=== PATIENT | female | born 1975 | race Hispanic/Latino ===

== ENCOUNTER 2021-12-03 21:28 | Inpatient (IN) | payer OTHER, SELFPAY ==
[2021-12-03 22:07] LABS: #Basophils 0.1 thou/uL (0.0-0.2); #Eosinphils 0.1 thou/uL (0.0-0.7); #Monocytes 0.8 thou/uL (0.11-0.59); #Neutrophils 8.8 thou/uL (1.40-6.50); %Basophils 0.5 % (0.0-1.0); %Eosinophils 1.2 % (0.0-10.0); %Neutrophils 74.3 % (42.0-75.0); Hemoglobin 8.4 g/dL (12.0-16.0); Mean Corpuscular HGB CONC 30.4 g/dL (32.0-36.0); Mean Corpuscular Hemoglobin 22.6 pg (27.0-31.0); Mean Corpuscular Volume 74.4 fL (78.0-98.0); Mean Platelet Volume 9.5 fL (7.4-10.4); Platelet Count 260 thou/uL (130-400); RBC Distribution Width 16.7 % (11.5-14.5); Red Blood Cell (RBC) Count 3.71 mill/uL (4.20-5.40); White Blood Cell (WBC) Count 11.8 thou/uL (4.8-10.8)
[2021-12-03 22:16] LABS: INR-International Normal Ratio 1.1; PTT 25.4 sec (22.9-36.1); Prothrombin Time 14.3 sec (12.0-14.7)
[2021-12-03 22:20] LABS: BHCG - Serum Negative (NEGATIVE); Pregs Control Background? CLEAR/WHITE (CLR/WHITE); Pregs Control Bar Appear? YES (CONTROL BAR)
[2021-12-03 22:27] LABS: ALT (SGPT) 23 U/L (8-55); AST (SGOT) 18 U/L (5-34); Albumin 3.1 g/dL (3.5-5.0); Alkaline Phosphatase 78 U/L (40-110); Anion Gap 10 mmol/L (10-20); BUN (Urea Nitrogen) 14 mg/dL (7.0-18.7); Bilirubin, Total 0.2 mg/dL (0.2-1.2); Calc. Creatinine Clearance 0 mL/min (70-130); Calcium 8.3 mg/dL (7.8-10.44); Carbon Dioxide 21 mmol/L (22-29); Chloride 114 mmol/L (98-107); Estimated GFR 93; Globulin 2.6 g/dL (2.4-3.5); Glucose 159 mg/dL (70-105); Protein, Total 5.7 g/dL (6.0-8.3); Sodium 141 mmol/L (136-145)
[2021-12-03] MEDS ORDERED: Pantoprazole 40 MG VIAL ONE (22:47)
[2021-12-04 02:41] LABS: SARS-CoV-2 NAA Rapid Test Not Detected (NotDetected)
[2021-12-04] MEDS ORDERED: Acetaminophen 325 MG TAB PO PRN (03:31)
[2021-12-04] MEDS ORDERED: Ondansetron PF 4 MG/2 ML Vial IVP PRN (03:31)
[2021-12-04] MEDS ORDERED: Sodium Chloride 0.9% 1,000 ML IV SCH ×2 (03:45→09:15)
[2021-12-04] MEDS ORDERED: Dextrose 50% Abboject 50 ML SYRINGE SLOW IVP PRN (04:01)
[2021-12-04] MEDS ORDERED: HumaLOG 300 UNITS/3 ML VIAL SC PRN ×2 (04:01)
[2021-12-04] MEDS ORDERED: Dextrose 5% in Water 1,000 ML IV PRN (04:01)
[2021-12-04 04:33] LABS: #Eosinphils 0.1 thou/uL (0.0-0.7); #Lymphocytes 1.7 thou/uL (1.20-3.40); #Monocytes 0.5 thou/uL (0.11-0.59); #Neutrophils 4.8 thou/uL (1.40-6.50); %Basophils 0.4 % (0.0-1.0); %Eosinophils 1.5 % (0.0-10.0); %Lymphocytes 24.1 % (21.0-51.0); %Monocytes 7.1 % (0.0-10.0); %Neutrophils 66.8 % (42.0-75.0); Hemoglobin 7.1 g/dL (12.0-16.0); Mean Corpuscular HGB CONC 31.5 g/dL (32.0-36.0); Mean Corpuscular Hemoglobin 23.8 pg (27.0-31.0); Mean Corpuscular Volume 75.5 fL (78.0-98.0); Mean Platelet Volume 10.3 fL (7.4-10.4); Platelet Count 208 thou/uL (130-400); RBC Distribution Width 16.6 % (11.5-14.5); White Blood Cell (WBC) Count 7.2 thou/uL (4.8-10.8)
[2021-12-04] MEDS: Sodium Chloride 0.9% 1,000 ML IV SCH ×2 (04:55→09:08)
[2021-12-04 04:57] LABS: Iron 16 ug/dL (50-170); Iron Binding Capacity, Total 271 mcg/dL (265-497)
[2021-12-04 04:58] LABS: Anion Gap 8 mmol/L (10-20); BUN (Urea Nitrogen) 12 mg/dL (7.0-18.7); Calc. Creatinine Clearance 0 mL/min (70-130); Calcium 7.8 mg/dL (7.8-10.44); Carbon Dioxide 21 mmol/L (22-29); Chloride 114 mmol/L (98-107); Estimated GFR 110; Glucose 134 mg/dL (70-105); Iron 15 ug/dL (50-170); Iron Binding Capacity, Total 278 mcg/dL (265-497); Potassium 3.9 mmol/L (3.5-5.1); Sodium 139 mmol/L (136-145)
[2021-12-04 05:24] VITALS: BMI 31.5
[2021-12-04] MEDS ORDERED: Iopamidol 370 76% 100 ML VIAL ONE (08:42)
[2021-12-04] MEDS: predniSONE 5 MG TAB PO SCH (09:00)
[2021-12-04] MEDS: Pantoprazole 40 MG VIAL IVP SCH (09:01)
[2021-12-04] MEDS ORDERED: GoLYTELY 4,000 ml Bottle PO SCH (18:00)
[2021-12-05 05:53] LABS: Hemoglobin 7.4 g/dL (12.0-16.0); Mean Corpuscular HGB CONC 31.7 g/dL (32.0-36.0); Mean Corpuscular Hemoglobin 23.2 pg (27.0-31.0); Mean Platelet Volume 9.8 fL (7.4-10.4); Platelet Count 216 thou/uL (130-400); RBC Distribution Width 16.5 % (11.5-14.5)
[2021-12-05 06:08] LABS: Anion Gap 11 mmol/L (10-20); BUN (Urea Nitrogen) 4 mg/dL (7.0-18.7); Calc. Creatinine Clearance 124 mL/min (70-130); Calcium 8.8 mg/dL (7.8-10.44); Carbon Dioxide 24 mmol/L (22-29); Chloride 110 mmol/L (98-107); Estimated GFR 104; Glucose 102 mg/dL (70-105); Potassium 3.8 mmol/L (3.5-5.1); Sodium 141 mmol/L (136-145)
[2021-12-05] MEDS: Pantoprazole 40 MG VIAL IVP SCH (08:20)
[2021-12-05] MEDS: predniSONE 5 MG TAB PO SCH (08:51)
[2021-12-05] MEDS ORDERED: PROPOFOL 200 MG/20 ML VIAL ONE (10:07)
[2021-12-06 06:16] LABS: Hemoglobin 8.2 g/dL (12.0-16.0); Mean Corpuscular HGB CONC 31.6 g/dL (32.0-36.0); Mean Platelet Volume 9.6 fL (7.4-10.4); Platelet Count 267 thou/uL (130-400); RBC Distribution Width 16.2 % (11.5-14.5); Red Blood Cell (RBC) Count 3.56 mill/uL (4.20-5.40); White Blood Cell (WBC) Count 5.8 thou/uL (4.8-10.8)
[2021-12-06 06:45] LABS: Anion Gap 12 mmol/L (10-20); BUN (Urea Nitrogen) 7 mg/dL (7.0-18.7); Calc. Creatinine Clearance 118 mL/min (70-130); Carbon Dioxide 22 mmol/L (22-29); Chloride 106 mmol/L (98-107); Estimated GFR 98; Glucose 112 mg/dL (70-105); Potassium 3.4 mmol/L (3.5-5.1); Sodium 137 mmol/L (136-145)
[2021-12-06] MEDS: Pantoprazole 40 MG VIAL IVP SCH (08:17)
[2021-12-06] MEDS: predniSONE 5 MG TAB PO SCH (08:17)
[2021-12-06] MEDS ORDERED: Potassium Chloride 20 MEQ in Premix Bag 1 BAG IVPB SCH (08:45)
[2021-12-06] MEDS ORDERED: HYDROmorphone 2 MG/ML VIAL ONE ×3 (13:35→15:59)
[2021-12-06] MEDS ORDERED: fentaNYL Citrate/PF 100 MCG/2 ML SYRINGE ONE ×4 (13:35→19:04)
[2021-12-06] MEDS ORDERED: Phenylephrine 10 MG/ML VIAL ONE ×2 (13:36→15:00)
[2021-12-06] MEDS ORDERED: Famotidine/PF 20 mg/2ml Vial ONE ×2 (13:36→15:00)
[2021-12-06] MEDS ORDERED: SUGAMMADEX SODIUM 200 MG/2 ML VIAL ONE (15:00)
[2021-12-06] MEDS ORDERED: PROPOFOL 200 MG/20 ML VIAL ONE (15:05)
[2021-12-06] MEDS ORDERED: Ketorolac Tromethamine 30 MG/ML VIAL ONE ×2 (15:05→18:09)
[2021-12-06] MEDS ORDERED: Lidocaine 1% PF 5 ML VIAL ONE (15:05)
[2021-12-06] MEDS ORDERED: Ondansetron PF 4 MG/2 ML Vial ONE (15:05)
[2021-12-06] MEDS ORDERED: Rocuronium Bromide 10 MG/ML (10ML VIAL) ONE (15:05)
[2021-12-06] MEDS ORDERED: Glycopyrrolate 0.2 MG/ML 5 ML SYRINGE ONE (15:05)
[2021-12-06] MEDS ORDERED: Dexamethasone 20 MG/5 ML VIAL ONE (15:05)
[2021-12-06] MEDS ORDERED: cefOXitin 2 GM VIAL ONE (15:12)
[2021-12-06] MEDS ORDERED: Sodium Chloride 0.9% 100 ML ONE (15:12)
[2021-12-06] MEDS ORDERED: Midazolam HCl 2 mg/2 ml Vial ONE (15:13)
[2021-12-06] MEDS ORDERED: Promethazine HCl 25 MG/ML VIAL IVPB PRN (16:07)
[2021-12-06] MEDS ORDERED: Meperidine HCl/PF 25 MG/ML VIAL SLOW IVP PRN (16:07)
[2021-12-06] MEDS ORDERED: HYDROmorphone 2 MG/ML VIAL SLOW IVP PRN (16:07)
[2021-12-06] MEDS ORDERED: Morphine 4 MG/ML VIAL SLOW IVP PRN (18:17)
[2021-12-06] MEDS ORDERED: Acetaminophen 500 MG TAB PO SCH (19:00)
[2021-12-06 20:21] LABS: Band 27 % (5-11); Hemoglobin 8.6 g/dL (12.0-16.0); Lymphocytes 3 % (21-51); MDiff Complete? YES; Mean Corpuscular HGB CONC 31.8 g/dL (32.0-36.0); Mean Corpuscular Hemoglobin 24.5 pg (27.0-31.0); Mean Corpuscular Volume 77.1 fL (78.0-98.0); Mean Platelet Volume 9.1 fL (7.4-10.4); Monocytes 7 % (0-10); Neutrophil 63 % (42-75); Platelet Count 296 thou/uL (130-400); RBC Distribution Width 16.9 % (11.5-14.5); Red Blood Cell (RBC) Count 3.52 mill/uL (4.20-5.40); White Blood Cell (WBC) Count 21.8 thou/uL (4.8-10.8)
[2021-12-06] MEDS: Morphine 2 MG/ML VIAL SLOW IVP PRN (23:20)
[2021-12-06] MEDS: Acetaminophen 500 MG TAB PO SCH (23:24)
[2021-12-07 05:46] LABS: Anion Gap 13 mmol/L (10-20); BUN (Urea Nitrogen) 7 mg/dL (7.0-18.7); Calc. Creatinine Clearance 118 mL/min (70-130); Calcium 8.3 mg/dL (7.8-10.44); Carbon Dioxide 16 mmol/L (22-29); Chloride 113 mmol/L (98-107); Estimated GFR 98; Glucose 169 mg/dL (70-105); Potassium 4.3 mmol/L (3.5-5.1); Sodium 138 mmol/L (136-145)
[2021-12-07] MEDS: Morphine 2 MG/ML VIAL SLOW IVP PRN ×2 (05:55→10:33)
[2021-12-07 06:05] LABS: HBSAB Concentration Less than 8.00 mIU/mL; HBSAg Index 0.26 S/CO (0-0.99); Hep B Surf AB Non-Reactive (NonReactive); Hep B Surf Ag Non-Reactive S/CO (NonReactive)
[2021-12-07] MEDS: Acetaminophen 500 MG TAB PO SCH ×4 (06:05→23:32)
[2021-12-07] MEDS: predniSONE 5 MG TAB PO SCH ×2 (08:02→08:21)
[2021-12-07] MEDS: Pantoprazole 40 MG VIAL IVP SCH (08:23)
[2021-12-07] MEDS: Sodium Chloride 0.9% 1,000 ML IV SCH ×3 (08:23→21:48)
[2021-12-07 08:49] LABS: Hemoglobin 8.6 g/dL (12.0-16.0); Mean Corpuscular HGB CONC 30.2 g/dL (32.0-36.0); Mean Corpuscular Hemoglobin 23.6 pg (27.0-31.0); Mean Corpuscular Volume 78.2 fL (78.0-98.0); Mean Platelet Volume 9.4 fL (7.4-10.4); Platelet Count 269 thou/uL (130-400); RBC Distribution Width 16.6 % (11.5-14.5); Red Blood Cell (RBC) Count 3.63 mill/uL (4.20-5.40); White Blood Cell (WBC) Count 17.7 thou/uL (4.8-10.8)
[2021-12-07] MEDS: Ketorolac Tromethamine 30 MG/ML VIAL IVP SCH ×3 (11:58→23:23)
[2021-12-07] MEDS: Hydrocortisone Sod Succ/PF 100 mg/2 ml Vial IVP SCH ×3 (11:59→23:22)
[2021-12-07] MEDS: cefOXitin 2 GM in Sodium Chloride 0.9% 100 ML IVPB SCH ×2 (13:55→21:48)
[2021-12-08] MEDS: cefOXitin 2 GM in Sodium Chloride 0.9% 100 ML IVPB SCH ×3 (05:28→22:51)
[2021-12-08] MEDS: Hydrocortisone Sod Succ/PF 100 mg/2 ml Vial IVP SCH ×4 (05:28→23:23)
[2021-12-08] MEDS: Ketorolac Tromethamine 30 MG/ML VIAL IVP SCH (05:29)
[2021-12-08] MEDS: Sodium Chloride 0.9% 1,000 ML IV SCH (05:33)
[2021-12-08] MEDS: Acetaminophen 500 MG TAB PO SCH ×3 (05:38→17:21)
[2021-12-08 05:51] LABS: Hemoglobin 6.8 g/dL (12.0-16.0); Mean Corpuscular HGB CONC 32.1 g/dL (32.0-36.0); Mean Corpuscular Hemoglobin 24.7 pg (27.0-31.0); Mean Corpuscular Volume 76.9 fL (78.0-98.0); Mean Platelet Volume 8.6 fL (7.4-10.4); Platelet Count 234 thou/uL (130-400); RBC Distribution Width 16.7 % (11.5-14.5); Red Blood Cell (RBC) Count 2.77 mill/uL (4.20-5.40); White Blood Cell (WBC) Count 13.8 thou/uL (4.8-10.8)
[2021-12-08 06:07] LABS: Anion Gap 10 mmol/L (10-20); BUN (Urea Nitrogen) 8 mg/dL (7.0-18.7); Calc. Creatinine Clearance 145 mL/min (70-130); Calcium 8.4 mg/dL (7.8-10.44); Carbon Dioxide 19 mmol/L (22-29); Chloride 113 mmol/L (98-107); Estimated GFR 111; Glucose 150 mg/dL (70-105); Potassium 3.8 mmol/L (3.5-5.1); Sodium 138 mmol/L (136-145)
[2021-12-08 09:01] LABS: Magnesium 2.1 mg/dL (1.6-2.6); Phosphorus 2.2 mg/dL (2.3-4.7)
[2021-12-08] MEDS: Pantoprazole 40 MG VIAL IVP SCH (09:01)
[2021-12-08] MEDS ORDERED: traMADol HCl 50 MG TAB PO PRN ×2 (09:25→13:08)
[2021-12-08] MEDS: traMADol HCl 50 MG TAB PO SCH ×2 (11:19→17:23)
[2021-12-08] MEDS ORDERED: Potassium Phosphate 30 MMOL in Sodium Chloride 0.9% 250 ML 250 ML IVPB SCH ×2 (12:30→16:00)
[2021-12-08] MEDS ORDERED: Potassium Phosphate 30 MMOL in Sodium Chloride 0.9% 500 ML IVPB SCH (12:45)
[2021-12-08] MEDS ORDERED: Morphine 4 MG/ML VIAL SLOW IVP PRN (13:07)
[2021-12-08] MEDS: Iron, Sodium Ferric Gluconate 250 MG in Sodium Chloride 0.9% 250 ML 250 ML IVPB SCH ×2 (13:27→15:03)
[2021-12-09] MEDS: traMADol HCl 50 MG TAB PO SCH ×5 (03:02→23:44)
[2021-12-09] MEDS: Acetaminophen 500 MG TAB PO SCH ×5 (03:02→23:43)
[2021-12-09] MEDS: Hydrocortisone Sod Succ/PF 100 mg/2 ml Vial IVP SCH ×4 (05:58→23:44)
[2021-12-09] MEDS: cefOXitin 2 GM in Sodium Chloride 0.9% 100 ML IVPB SCH ×3 (05:59→22:19)
[2021-12-09 07:27] LABS: #Lymphocytes 1.3 thou/uL (1.20-3.40); #Monocytes 0.7 thou/uL (0.11-0.59); #Neutrophils 10.2 thou/uL (1.40-6.50); %Eosinophils 0.3 % (0.0-10.0); %Lymphocytes 10.4 % (21.0-51.0); %Monocytes 5.9 % (0.0-10.0); %Neutrophils 83.4 % (42.0-75.0); Hemoglobin 7.5 g/dL (12.0-16.0); Mean Corpuscular Hemoglobin 25.2 pg (27.0-31.0); Mean Corpuscular Volume 78.8 fL (78.0-98.0); Mean Platelet Volume 9.1 fL (7.4-10.4); Platelet Count 255 thou/uL (130-400); RBC Distribution Width 17.8 % (11.5-14.5); Red Blood Cell (RBC) Count 2.98 mill/uL (4.20-5.40); White Blood Cell (WBC) Count 12.2 thou/uL (4.8-10.8)
[2021-12-09 07:54] LABS: Anion Gap 13 mmol/L (10-20); BUN (Urea Nitrogen) 7 mg/dL (7.0-18.7); Calc. Creatinine Clearance 154 mL/min (70-130); Calcium 8.4 mg/dL (7.8-10.44); Carbon Dioxide 19 mmol/L (22-29); Chloride 111 mmol/L (98-107); Estimated GFR 113; Glucose 113 mg/dL (70-105); Phosphorus 2.8 mg/dL (2.3-4.7); Potassium 3.8 mmol/L (3.5-5.1); Sodium 139 mmol/L (136-145)
[2021-12-09] MEDS: Pantoprazole 40 MG VIAL IVP SCH (08:53)
[2021-12-09] MEDS ORDERED: Potassium Phosphate 15 MMOL in Sodium Chloride 0.9% 250 ML 250 ML IVPB SCH (09:00)
[2021-12-09] MEDS ORDERED: IRON SUCROSE COMPLEX 100 MG/5 ML SLOW IVP SCH (15:45)
[2021-12-09] MEDS ORDERED: Iron, Sodium Ferric Gluconate 125 MG in Sodium Chloride 0.9% 100 ML IVPB SCH (16:00)
[2021-12-10] MEDS: Hydrocortisone Sod Succ/PF 100 mg/2 ml Vial IVP SCH ×2 (06:02→12:28)
[2021-12-10] MEDS: cefOXitin 2 GM in Sodium Chloride 0.9% 100 ML IVPB SCH (06:04)
[2021-12-10] MEDS: Acetaminophen 500 MG TAB PO SCH ×2 (06:10→12:28)
[2021-12-10] MEDS: traMADol HCl 50 MG TAB PO SCH ×2 (06:10→12:28)
[2021-12-10 07:41] LABS: Anion Gap 10 mmol/L (10-20); BUN (Urea Nitrogen) 6 mg/dL (7.0-18.7); Calc. Creatinine Clearance 108 mL/min (70-130); Calcium 9.1 mg/dL (7.8-10.44); Carbon Dioxide 24 mmol/L (22-29); Chloride 109 mmol/L (98-107); Estimated GFR 88; Glucose 117 mg/dL (70-105); Magnesium 2.1 mg/dL (1.6-2.6); Phosphorus 2.9 mg/dL (2.3-4.7); Potassium 3.9 mmol/L (3.5-5.1); Sodium 139 mmol/L (136-145)
[2021-12-10 07:47] LABS: Anisocytosis SLIGHT = 6-15 cells (100X) (0-5/hpf); Band 5 % (5-11); Eosinophils 1 % (0-10); Hemoglobin 7.6 g/dL (12.0-16.0); Hypochromia SLIGHT = 6-15 cells (100X) (0-5/hpf); Lymphocytes 12 % (21-51); MDiff Complete? YES; Mean Corpuscular HGB CONC 31.1 g/dL (32.0-36.0); Mean Corpuscular Hemoglobin 24.6 pg (27.0-31.0); Mean Corpuscular Volume 79.1 fL (78.0-98.0); Mean Platelet Volume 8.5 fL (7.4-10.4); Metamyelocyte 1 % (0-0); Monocytes 9 % (0-10); Neutrophil 71 % (42-75); Ovalocytes SLIGHT = 2-5 cells (100X) (0-1/hpf); Platelet Count 301 thou/uL (130-400); Platelet Morphology Comment Appears Adequate; Polychromasia MODERATE = 3-4 cells (100X) (0-2/hpf); RBC Distribution Width 18.2 % (11.5-14.5); Reactive Lymphocytes 1 % (0-10); Red Blood Cell (RBC) Count 3.08 mill/uL (4.20-5.40); White Blood Cell (WBC) Count 9.3 thou/uL (4.8-10.8)
[2021-12-10] MEDS ORDERED: PHOS-NAK 1 PKT PACK PO SCH (08:00)
[2021-12-10] MEDS: Pantoprazole 40 MG VIAL IVP SCH (08:28)
[2021-12-10 13:11] VITALS: BP 147/88; TEMP 98.4
[2021-12-10 17:37] LABS: HCV RNA, log10 5.258 (.); Hep C PCR-Quant 181000 IU/mL (.)
== END 2021-12-10 13:37 | disposition home or self-care (01) | DRG 330 ==
LOC: ERS 21:28 → ERHOLD 23:19 → T4-A 12-04 04:54 → OBSVTOIN 12-04 10:52
PROVIDERS: ADMIT Internal Medicine; ATTEND Internal Medicine
PROC: 0DBK8ZX Excision of Ascending Colon, Via Natural or Artificial Opening Endoscopic, Diagnostic (ICD-10-PCS; 2021-12-05)
PROC: 0DTF0ZZ Resection of Right Large Intestine, Open Approach (ICD-10-PCS; principal; 2021-12-06)
PROC: 30233N1 Transfusion of Nonautologous Red Blood Cells into Peripheral Vein, Percutaneous Approach (ICD-10-PCS; 2021-12-06)
DX: C18.2 Malignant neoplasm of ascending colon (principal); K92.1 Melena; D62 Acute posthemorrhagic anemia; K63.3 Ulcer of intestine; I10 Essential (primary) hypertension; E78.5 Hyperlipidemia, unspecified; E11.9 Type 2 diabetes mellitus without complications; E87.6 Hypokalemia; E83.39 Other disorders of phosphorus metabolism; F32.A Depression, unspecified; D72.829 Elevated white blood cell count, unspecified; K64.4 Residual hemorrhoidal skin tags; E78.00 Pure hypercholesterolemia, unspecified; M06.9 Rheumatoid arthritis, unspecified; B19.20 Unspecified viral hepatitis C without hepatic coma; D50.9 Iron deficiency anemia, unspecified; D63.0 Anemia in neoplastic disease; Z20.822 Contact with and (suspected) exposure to COVID-19; Z80.3 Family history of malignant neoplasm of breast; Z80.0 Family history of malignant neoplasm of digestive organs; Z79.4 Long term (current) use of insulin; Z79.899 Other long term (current) drug therapy; Z79.82 Long term (current) use of aspirin; Z98.51 Tubal ligation status; Z90.89 Acquired absence of other organs; Z79.84 Long term (current) use of oral hypoglycemic drugs; Z79.51 Long term (current) use of inhaled steroids; Z90.49 Acquired absence of other specified parts of digestive tract
CPT/HCPCS: 36415; 36416; 36430; 74177; 80048; 80053; 82274; 83540; 83550; 83735; 84100; 84484; 84703; 85025; 85027; 85610; 85730; 86706; 86708; 86850; 86900; 86901; 87340; 87522; 87902; 88305; 88309; 88341; 88342; 93005; 96361; 96374; 96376; A4649; C1713; C1776; C9113; G0378; J0694; J1100; J1170; J1720; J1815; J1885; J2250; J2270; J2370; J2405; J2704; J2710; J2916; J3480; J3490; J7050; J7512; P9016; Q9967; S0028

== ENCOUNTER 2021-12-20 17:15 | Inpatient (IN) | payer OTHER, SELFPAY ==
[~2021-12-20 17:15] MED LIST: Iopamidol-370 76% 500 ML 1 ML ONE
[2021-12-20 18:19] LABS: #Eosinphils 0.1 thou/uL (0.0-0.7); #Lymphocytes 1.5 thou/uL (1.20-3.40); #Monocytes 0.8 thou/uL (0.11-0.59); #Neutrophils 7.7 thou/uL (1.40-6.50); %Basophils 0.1 % (0.0-1.0); %Eosinophils 0.9 % (0.0-10.0); %Monocytes 8.1 % (0.0-10.0); %Neutrophils 75.8 % (42.0-75.0); Hemoglobin 8.2 g/dL (12.0-16.0); Mean Corpuscular HGB CONC 30.7 g/dL (32.0-36.0); Mean Corpuscular Hemoglobin 24.4 pg (27.0-31.0); Mean Corpuscular Volume 79.6 fL (78.0-98.0); Mean Platelet Volume 7.7 fL (7.4-10.4); Platelet Count 399 thou/uL (130-400); RBC Distribution Width 19.3 % (11.5-14.5); Red Blood Cell (RBC) Count 3.37 mill/uL (4.20-5.40); White Blood Cell (WBC) Count 10.1 thou/uL (4.8-10.8)
[2021-12-20] MEDS ORDERED: Piperacillin/Tazobactam 3.375 GM VIAL ONE (18:30)
[2021-12-20 18:40] LABS: ALT (SGPT) 12 U/L (8-55); AST (SGOT) 13 U/L (5-34); Albumin 3.1 g/dL (3.5-5.0); Alkaline Phosphatase 68 U/L (40-110); Anion Gap 11 mmol/L (10-20); BUN (Urea Nitrogen) 9 mg/dL (7.0-18.7); Bilirubin, Total 0.2 mg/dL (0.2-1.2); Calc. Creatinine Clearance 0 mL/min (70-130); Calcium 8.9 mg/dL (7.8-10.44); Carbon Dioxide 23 mmol/L (22-29); Chloride 109 mmol/L (98-107); Estimated GFR 109; Globulin 3.2 g/dL (2.4-3.5); Glucose 94 mg/dL (70-105); Protein, Total 6.3 g/dL (6.0-8.3); Sodium 139 mmol/L (136-145)
[2021-12-20] MEDS ORDERED: Vancomycin 1 GM/200 ML BAG ONE (19:08)
[2021-12-20] MEDS ORDERED: Lidocaine 1% PF 5 ML VIAL ONE (19:28)
[2021-12-20] MEDS ORDERED: Morphine 4 MG/ML VIAL ONE (20:13)
[2021-12-20] MEDS ORDERED: Promethazine HCl 25 MG/ML VIAL IM PRN (20:14)
[2021-12-20] MEDS ORDERED: hydrALAZINE 20 MG/ML VIAL SLOW IVP PRN (20:14)
[2021-12-20] MEDS ORDERED: Dextrose 5% in Water 1,000 ML IV PRN (20:14)
[2021-12-20] MEDS ORDERED: Ondansetron ODT 4 MG TAB PO PRN (20:14)
[2021-12-20] MEDS ORDERED: Dextrose 50% Abboject 50 ML SYRINGE SLOW IVP PRN (20:14)
[2021-12-20] MEDS ORDERED: Ondansetron PF 4 MG/2 ML Vial IVP PRN (20:14)
[2021-12-20] MEDS ORDERED: Cyclobenzaprine 10 MG TAB PO PRN (20:17)
[2021-12-20] MEDS ORDERED: Ibuprofen 800 MG TAB PO PRN (20:17)
[2021-12-20] MEDS ORDERED: traMADol HCl 50 MG TAB PO PRN (20:17)
[2021-12-20] MEDS ORDERED: Acetaminophen 500 MG TAB PO SCH (20:30)
[2021-12-20 21:54] VITALS: BMI 28.8
[2021-12-20] MEDS: Acetaminophen 500 MG TAB PO SCH (22:52)
[2021-12-20] MEDS: traMADol HCl 50 MG TAB PO SCH (22:52)
[2021-12-20] MEDS: Piperacillin/Tazobactam 3.375 GM in Sodium Chloride 0.9% 100 ML IVPB SCH (22:53)
[2021-12-20] MEDS: Famotidine 20 MG TAB PO SCH (22:53)
[2021-12-21] MEDS: traMADol HCl 50 MG TAB PO SCH ×4 (03:56→20:37)
[2021-12-21] MEDS: Acetaminophen 500 MG TAB PO SCH ×4 (03:57→20:37)
[2021-12-21] MEDS: Piperacillin/Tazobactam 3.375 GM in Sodium Chloride 0.9% 100 ML IVPB SCH ×3 (05:38→20:37)
[2021-12-21 07:18] LABS: SARS-CoV-2 NAA Rapid Test Not Detected (NotDetected)
[2021-12-21] MEDS ORDERED: Simvastatin 20 MG TAB PO SCH (09:00)
[2021-12-21] MEDS ORDERED: ZINC SULF PO SCH (09:00)
[2021-12-21] MEDS ORDERED: CALCIUM CARB PO SCH (09:00)
[2021-12-21] MEDS ORDERED: MAG OX PO SCH (09:00)
[2021-12-21] MEDS: Lisinopril 2.5 MG TAB PO SCH (09:17)
[2021-12-21] MEDS: Atorvastatin Calcium 10 MG TAB PO SCH (09:18)
[2021-12-21] MEDS: predniSONE 5 MG TAB PO SCH (09:18)
[2021-12-21] MEDS: Multivitamin W/ Minerals 1 TAB PO SCH (09:18)
[2021-12-21] MEDS: Ascorbic Acid 500 mg Chewable Tablet PO SCH ×2 (09:19→20:37)
[2021-12-21] MEDS: Aspirin 81 mg Enteric Coated Tablet PO SCH (09:19)
[2021-12-21] MEDS: Amlodipine 10 MG TAB PO SCH (09:19)
[2021-12-21] MEDS: Famotidine 20 MG TAB PO SCH ×2 (09:19→20:37)
[2021-12-21] MEDS: Glimepiride 1 MG TAB PO SCH (09:32)
[2021-12-21] MEDS ORDERED: Morphine 4 MG/ML VIAL ONE (10:06)
[2021-12-22] MEDS: Acetaminophen 500 MG TAB PO SCH ×4 (03:23→21:01)
[2021-12-22] MEDS: traMADol HCl 50 MG TAB PO SCH ×4 (03:23→21:01)
[2021-12-22] MEDS: Piperacillin/Tazobactam 3.375 GM in Sodium Chloride 0.9% 100 ML IVPB SCH ×3 (05:15→21:01)
[2021-12-22 05:41] LABS: #Eosinphils 0.1 thou/uL (0.0-0.7); #Lymphocytes 1.4 thou/uL (1.20-3.40); #Monocytes 0.6 thou/uL (0.11-0.59); #Neutrophils 4.7 thou/uL (1.40-6.50); %Basophils 0.7 % (0.0-1.0); %Lymphocytes 19.7 % (21.0-51.0); %Monocytes 9.1 % (0.0-10.0); %Neutrophils 68.5 % (42.0-75.0); Hemoglobin 8.8 g/dL (12.0-16.0); Mean Corpuscular HGB CONC 31.2 g/dL (32.0-36.0); Mean Corpuscular Hemoglobin 24.8 pg (27.0-31.0); Mean Corpuscular Volume 79.3 fL (78.0-98.0); Mean Platelet Volume 7.5 fL (7.4-10.4); Platelet Count 440 thou/uL (130-400); RBC Distribution Width 19.5 % (11.5-14.5); Red Blood Cell (RBC) Count 3.56 mill/uL (4.20-5.40); White Blood Cell (WBC) Count 6.9 thou/uL (4.8-10.8)
[2021-12-22 06:04] LABS: Anion Gap 12 mmol/L (10-20); BUN (Urea Nitrogen) 8 mg/dL (7.0-18.7); Calc. Creatinine Clearance 119 mL/min (70-130); Calcium 8.9 mg/dL (7.8-10.44); Carbon Dioxide 22 mmol/L (22-29); Chloride 106 mmol/L (98-107); Estimated GFR 108; Glucose 68 mg/dL (70-105); Phosphorus 3.5 mg/dL (2.3-4.7); Potassium 4.2 mmol/L (3.5-5.1); Sodium 136 mmol/L (136-145)
[2021-12-22] MEDS: Glimepiride 1 MG TAB PO SCH (09:15)
[2021-12-22] MEDS: Lisinopril 2.5 MG TAB PO SCH (09:15)
[2021-12-22] MEDS: Famotidine 20 MG TAB PO SCH ×2 (09:16→20:09)
[2021-12-22] MEDS: Ascorbic Acid 500 mg Chewable Tablet PO SCH ×2 (09:16→20:08)
[2021-12-22] MEDS: predniSONE 5 MG TAB PO SCH (09:17)
[2021-12-22] MEDS: Multivitamin W/ Minerals 1 TAB PO SCH (09:17)
[2021-12-22] MEDS: Atorvastatin Calcium 10 MG TAB PO SCH (09:17)
[2021-12-22] MEDS: Aspirin 81 mg Enteric Coated Tablet PO SCH (09:17)
[2021-12-22] MEDS: Amlodipine 10 MG TAB PO SCH (09:18)
[2021-12-23] MEDS: traMADol HCl 50 MG TAB PO SCH ×4 (03:54→21:14)
[2021-12-23] MEDS: Acetaminophen 500 MG TAB PO SCH ×4 (03:54→21:13)
[2021-12-23] MEDS: Piperacillin/Tazobactam 3.375 GM in Sodium Chloride 0.9% 100 ML IVPB SCH ×3 (05:37→21:13)
[2021-12-23] MEDS: Aspirin 81 mg Enteric Coated Tablet PO SCH (08:29)
[2021-12-23] MEDS: Multivitamin W/ Minerals 1 TAB PO SCH (08:29)
[2021-12-23] MEDS: Ascorbic Acid 500 mg Chewable Tablet PO SCH ×2 (08:29→21:15)
[2021-12-23] MEDS: Lisinopril 2.5 MG TAB PO SCH (08:29)
[2021-12-23] MEDS: Atorvastatin Calcium 10 MG TAB PO SCH (08:29)
[2021-12-23] MEDS: Glimepiride 1 MG TAB PO SCH (08:29)
[2021-12-23] MEDS: predniSONE 5 MG TAB PO SCH (08:30)
[2021-12-23] MEDS: Famotidine 20 MG TAB PO SCH ×2 (08:30→21:13)
[2021-12-23] MEDS: Amlodipine 10 MG TAB PO SCH (08:30)
[2021-12-23] MEDS ORDERED: Morphine 4 MG/ML VIAL SLOW IVP PRN (12:59)
[2021-12-24] MEDS: Acetaminophen 500 MG TAB PO SCH ×2 (04:02→09:16)
[2021-12-24] MEDS: traMADol HCl 50 MG TAB PO SCH ×2 (04:02→09:15)
[2021-12-24] MEDS: Piperacillin/Tazobactam 3.375 GM in Sodium Chloride 0.9% 100 ML IVPB SCH (06:07)
[2021-12-24 06:28] LABS: #Eosinphils 0.1 thou/uL (0.0-0.7); #Lymphocytes 2.2 thou/uL (1.20-3.40); #Monocytes 0.4 thou/uL (0.11-0.59); #Neutrophils 2.9 thou/uL (1.40-6.50); %Basophils 0.9 % (0.0-1.0); %Eosinophils 2.4 % (0.0-10.0); %Lymphocytes 38.4 % (21.0-51.0); %Monocytes 7.5 % (0.0-10.0); %Neutrophils 50.9 % (42.0-75.0); Hemoglobin 9.6 g/dL (12.0-16.0); Mean Corpuscular HGB CONC 30.9 g/dL (32.0-36.0); Mean Corpuscular Hemoglobin 24.6 pg (27.0-31.0); Mean Corpuscular Volume 79.6 fL (78.0-98.0); Mean Platelet Volume 7.4 fL (7.4-10.4); Platelet Count 466 thou/uL (130-400); RBC Distribution Width 19.2 % (11.5-14.5); Red Blood Cell (RBC) Count 3.91 mill/uL (4.20-5.40); White Blood Cell (WBC) Count 5.6 thou/uL (4.8-10.8)
[2021-12-24 06:52] LABS: Anion Gap 14 mmol/L (10-20); BUN (Urea Nitrogen) 10 mg/dL (7.0-18.7); Calc. Creatinine Clearance 120 mL/min (70-130); Carbon Dioxide 20 mmol/L (22-29); Chloride 108 mmol/L (98-107); Estimated GFR 109; Glucose 65 mg/dL (70-105); Phosphorus 3.1 mg/dL (2.3-4.7); Potassium 3.9 mmol/L (3.5-5.1); Sodium 138 mmol/L (136-145)
[2021-12-24] MEDS ORDERED: Saccharomyces boulardii 250 MG CAP PO SCH (09:00)
[2021-12-24] MEDS: Amlodipine 10 MG TAB PO SCH (09:14)
[2021-12-24] MEDS: Ascorbic Acid 500 mg Chewable Tablet PO SCH (09:14)
[2021-12-24] MEDS: Atorvastatin Calcium 10 MG TAB PO SCH (09:14)
[2021-12-24] MEDS: Multivitamin W/ Minerals 1 TAB PO SCH (09:14)
[2021-12-24] MEDS: Lisinopril 2.5 MG TAB PO SCH (09:14)
[2021-12-24] MEDS: Aspirin 81 mg Enteric Coated Tablet PO SCH (09:14)
[2021-12-24] MEDS: Famotidine 20 MG TAB PO SCH (09:14)
[2021-12-24] MEDS: Glimepiride 1 MG TAB PO SCH (09:15)
[2021-12-24] MEDS: predniSONE 5 MG TAB PO SCH (09:15)
[2021-12-24 12:36] VITALS: BP 124/83; TEMP 98
== END 2021-12-24 14:00 | disposition home or self-care (01) | DRG 863 ==
LOC: ERS 17:15 → SURG B 19:53
PROVIDERS: ADMIT Surgery; ATTEND Surgery
PROC: 0J980ZZ Drainage of Abdomen Subcutaneous Tissue and Fascia, Open Approach (ICD-10-PCS; principal; 2021-12-20)
DX: T81.49XA Infection following a procedure, other surgical site, initial encounter (principal); L03.311 Cellulitis of abdominal wall; Y83.8 Other surgical procedures as the cause of abnormal reaction of the patient, or of later complication, without mention of misadventure at the time of the procedure; Z20.822 Contact with and (suspected) exposure to COVID-19; E11.9 Type 2 diabetes mellitus without complications; F32.A Depression, unspecified; M19.90 Unspecified osteoarthritis, unspecified site; I10 Essential (primary) hypertension; D64.9 Anemia, unspecified; Z79.899 Other long term (current) drug therapy; Z90.49 Acquired absence of other specified parts of digestive tract; Z98.51 Tubal ligation status; Z79.84 Long term (current) use of oral hypoglycemic drugs; Z79.82 Long term (current) use of aspirin; Z79.52 Long term (current) use of systemic steroids
CPT/HCPCS: 10060; 36415; 36416; 74177; 80048; 80053; 83605; 83735; 84100; 85025; 87040; 87070; 87077; 87186; 87205; 96365; 96366; 96367; 96375; 97139; J2270; J2543; J3370; J3490; J7512; Q9967; U0002

== ENCOUNTER 2021-12-28 09:16 | Outpatient (CLI) | payer OTHER | END 2021-12-28 09:17 | disposition home or self-care (01) | LOC: BICRAD 09:16 | PROVIDERS: ATTEND Internal Medicine | DX: C18.2 Malignant neoplasm of ascending colon (principal); B18.2 Chronic viral hepatitis C | CPT/HCPCS: 71046 ==

== ENCOUNTER 2022-03-05 09:17 | Day surgery (SDC) | payer BC ==
[2022-03-04 15:18] VITALS: BMI 28.3
[2022-03-05] MEDS ORDERED: Acetaminophen 500 MG TAB ONE (10:19)
[2022-03-05] MEDS ORDERED: Ketorolac Tromethamine 30 MG/ML VIAL ONE (10:19)
[2022-03-05] MEDS ORDERED: fentaNYL Citrate/PF 100 MCG/2 ML SYRINGE ONE (14:35)
[2022-03-05] MEDS ORDERED: Propofol 500 MG/50 ML VIAL ONE (14:35)
[2022-03-05] MEDS ORDERED: Midazolam HCl 2 mg/2 ml Vial ONE (14:35)
[2022-03-05] MEDS ORDERED: Bupivacaine/Epinephrine 0.25% 30 ML VIAL ONE (14:39)
[2022-03-05] MEDS ORDERED: Lidocaine 2% PF 5 ML VIAL ONE (14:39)
[2022-03-05] MEDS ORDERED: Sodium Chloride 0.9% 100 ML ONE (14:53)
[2022-03-05] MEDS ORDERED: CEFAZOLIN 2 GM VIAL ONE (14:53)
[2022-03-05] MEDS ORDERED: Ketamine 50 MG/ML (10ML VIAL) ONE (14:56)
== END 2022-03-05 16:50 | disposition home or self-care (01) ==
LOC: SDC 09:17
PROVIDERS: ATTEND Specialist
PROC: 0JH60WZ Insertion of Totally Implantable Vascular Access Device into Chest Subcutaneous Tissue and Fascia, Open Approach (ICD-10-PCS; principal; 2022-03-05)
PROC: 02HV33Z Insertion of Infusion Device into Superior Vena Cava, Percutaneous Approach (ICD-10-PCS; principal; 2022-03-05)
DX: C18.9 Malignant neoplasm of colon, unspecified (principal); C77.2 Secondary and unspecified malignant neoplasm of intra-abdominal lymph nodes; E11.9 Type 2 diabetes mellitus without complications; I10 Essential (primary) hypertension; M19.90 Unspecified osteoarthritis, unspecified site; E66.9 Obesity, unspecified; Z68.28 Body mass index [BMI] 28.0-28.9, adult; Z79.52 Long term (current) use of systemic steroids; Z79.82 Long term (current) use of aspirin; Z79.84 Long term (current) use of oral hypoglycemic drugs; Z79.899 Other long term (current) drug therapy; Z90.49 Acquired absence of other specified parts of digestive tract
CPT/HCPCS: 71045; C1788; J1642; J1885; J2001; J2250; J2704; J3490

== ENCOUNTER 2022-05-28 10:33 | Outpatient (CLI) | payer BC ==
[2022-05-28] MEDS ORDERED: Iopamidol-370 76% 500 ML 1 ML ONE (13:03)
== END 2022-05-28 10:34 | disposition home or self-care (01) ==
LOC: BICCT 10:33
PROVIDERS: ATTEND Internal Medicine
DX: C18.9 Malignant neoplasm of colon, unspecified (principal); K76.89 Other specified diseases of liver
CPT/HCPCS: 71260; 82565; Q9967

== ENCOUNTER 2022-09-16 10:11 | Outpatient (CLI) | payer BC ==
[~2022-09-16 10:11] MED LIST changes: +Iopamidol 370 76% 100 ML VIAL ONE; -Iopamidol-370 76% 500 ML 1 ML ONE
== END 2022-09-16 10:12 | disposition home or self-care (01) ==
LOC: CT 10:11
PROVIDERS: ATTEND Internal Medicine
DX: C18.2 Malignant neoplasm of ascending colon (principal); Z98.890 Other specified postprocedural states
CPT/HCPCS: 74177; Q9967

== ENCOUNTER 2023-03-03 09:06 | Outpatient (CLI) | payer BC ==
[2023-03-03] MEDS ORDERED: Iopamidol 370 76% 100 ML VIAL ONE (09:31)
== END 2023-03-03 09:07 | disposition home or self-care (01) ==
LOC: BICCT 09:06
PROVIDERS: ATTEND Internal Medicine
DX: C18.2 Malignant neoplasm of ascending colon (principal); Z90.49 Acquired absence of other specified parts of digestive tract
CPT/HCPCS: 71260; 74177; 82565; Q9967

== ENCOUNTER 2023-03-11 11:07 | Outpatient (CLI) | payer BC | END 2023-03-11 11:08 | disposition home or self-care (01) | LOC: BICMAMMO 11:07 | PROVIDERS: ATTEND Registered Nurse | DX: Z12.31 Encounter for screening mammogram for malignant neoplasm of breast (principal); Z80.3 Family history of malignant neoplasm of breast | CPT/HCPCS: 77063; 77067 ==

== ENCOUNTER 2023-04-22 14:53 | Outpatient (CLI) | payer BC | END 2023-04-22 14:54 | disposition home or self-care (01) | LOC: BICULT 14:53 | PROVIDERS: ATTEND Registered Nurse | DX: R09.A2 Foreign body sensation, throat (principal); E04.1 Nontoxic single thyroid nodule; E07.89 Other specified disorders of thyroid | CPT/HCPCS: 76536 ==

== ENCOUNTER 2023-11-10 09:43 | Outpatient (CLI) | payer BC | END 2023-11-10 09:44 | disposition home or self-care (01) | LOC: MRI 09:43 | PROVIDERS: ATTEND Internal Medicine | DX: C18.2 Malignant neoplasm of ascending colon (principal); R93.5 Abnormal findings on diagnostic imaging of other abdominal regions, including retroperitoneum | CPT/HCPCS: 74183; A9579 ==

== ENCOUNTER 2024-01-28 23:00 | Emergency (ER) | payer BC ==
[2024-01-29 01:30] LABS: Troponin I Less than 0.010 ng/mL (< 0.028)
== END 2024-01-29 02:00 | disposition home or self-care (01) ==
LOC: ERS 23:00
DX: R07.89 Other chest pain (principal); E11.9 Type 2 diabetes mellitus without complications; I10 Essential (primary) hypertension
CPT/HCPCS: 93005

== ENCOUNTER 2024-03-03 09:12 | Outpatient (CLI) | payer BC ==
[2024-03-03] MEDS ORDERED: Iopamidol 370 76% 100 ML VIAL ONE (10:42)
== END 2024-03-03 09:13 | disposition home or self-care (01) ==
LOC: BICCT 09:12
PROVIDERS: ATTEND Internal Medicine
DX: C18.2 Malignant neoplasm of ascending colon (principal); K76.89 Other specified diseases of liver; I87.8 Other specified disorders of veins; Z90.49 Acquired absence of other specified parts of digestive tract
CPT/HCPCS: 36415; 71260; 74177; 82565; Q9967

== ENCOUNTER 2024-06-23 08:55 | Outpatient (CLI) | payer OTHER | END 2024-06-23 08:56 | disposition home or self-care (01) | LOC: BICMAMMO 08:55 | DX: N64.4 Mastodynia (principal) | CPT/HCPCS: 77066; G0279 ==

== ENCOUNTER 2025-03-04 08:16 | Outpatient (CLI) | payer OTHER ==
[2025-03-04] MEDS ORDERED: Iopamidol 370 76% 100 ML VIAL ONE (11:59)
== END 2025-03-04 08:17 | disposition home or self-care (01) ==
LOC: CT 08:16
PROVIDERS: ATTEND Internal Medicine
DX: C18.2 Malignant neoplasm of ascending colon (principal); B18.2 Chronic viral hepatitis C; D50.8 Other iron deficiency anemias; R16.1 Splenomegaly, not elsewhere classified; K76.89 Other specified diseases of liver
CPT/HCPCS: 71260; 74177; Q9967

== ENCOUNTER 2025-03-17 09:30 | Outpatient (CLI) | payer OTHER | END 2025-03-17 09:31 | disposition home or self-care (01) | LOC: PET 09:30 | PROVIDERS: ATTEND Internal Medicine | DX: C18.2 Malignant neoplasm of ascending colon (principal); B18.2 Chronic viral hepatitis C; D50.8 Other iron deficiency anemias; K76.9 Liver disease, unspecified | CPT/HCPCS: 78815; A9552 ==